=== PATIENT | female | born 1985 | race Caucasian/White ===

== ENCOUNTER 2018-10-05 11:14 | Emergency (ER) ==
[2018-10-05 11:32] VITALS: BP 116/83; TEMP 98.4; BMI 30.7
[2018-10-05] MEDS: MORPHINE 4 MG/ML SYRINGE IM STA (11:57)
[2018-10-05] MEDS: ZOFRAN 4 MG/2 ML IM STA (11:58)
[2018-10-05 12:13] LABS: URINE PREGNANCY TEST NEGATIVE (NEGATIVE)
--- NOTE | 2018-10-05 13:03 | CT ---
EXAM: CT ABDOMEN AND PELVIS HISTORY: Left-sided pain TECHNIQUE: CT abdomen and pelvis without intravenous contrast. Images were reconstructed using 3 mm section thickness. Reformations were prepared. COMPARISON: None FINDINGS: Diagnostic limitations may exist without including contrast enhanced images. Liver and spleen within normal limits. Gallbladder is absent. Pancreas, adrenal glands, kidneys and visualized ureters aissatou ear normal. Normal bowel aorta. There is no gastric distension. What may represent the appendix has no evidence of inflammation. Ge neral bowel gas pattern and appearance is within normal limits. Uterus and urinary bladder appear no rmal. There is no ascites or inflammatory infiltration of the abdominal fat. There is a metallic st ructure in the left adnexa suggesting a surgical clip. Correlate with history. Abdominal wall is intact. Bones reveal scoliosis of the spine. Lung bases are clear. No pneumoperi toneum. IMPRESSION: No acute intra-abdominal or pelvic abnormality identified.
--- NOTE | 2018-10-05 13:24 | US ---
EXAM: PELVIC ULTRASOUND COMPLETE HISTORY: Pain left side FINDINGS: Ultrasound pelvis transvaginal. Transvaginal approach imaging was performed for improved resolution and anatomic definition. The uterus measured 8.3 x 3.8 x 4.4 centimeters. Suggestion of a hypoechoic myometrial mass anterior ly, mid body to fundal level measuring 2.3 x 1.5 x 1.6 centimeters. The endometrial stripe measured 0.8 cm. There is a small amount of ascites within the pelvis which appears simple sonographically. The right ovary measured 3.9 x 1.0 of 1.4 cm and the left ovary 3.0 x 2.3 x 1.8 centimeters. Ovaries appeared have adequate blood flow and scattered follicles. IMPRESSION: 1. Possible uterine fibroid measuring up to 2.3 cm. 2. Normal endometrial thickness. 3. Grossly unremarkable ovaries. 4. Small amount of pelvic ascites, nonspecific and possibly physiologic.
--- NOTE | 2018-10-05 13:25 | ED.PDOC ---
General ED Provider: Dr. JONATHAN ELIZONDO Chief Complaint: Abdominal Pain Stated Complaint: left lower abdominal pain x 2 days Time Seen by Physician: 11:18 ( seen with rehan at all times ) Mode of Arrival: Walk-In Information Source: Patient Exam Limitations: No limitations Referred to ED by: Other (WAS IN A [facility] 3 WEEKS AGO) Nursing and Triage Documentation Reviewed and Agree: Yes Does patient meet sepsis criteria?: No System Inflammatory Response Syndrome: Not Applicable Sepsis Protocol: For patient's 13 years and over: Temp is 96.8 and below OR 101 and greater Pulse >90 BPM Resp >20/minute Acutely Altered Mental Status Are patient's symptoms suggestive of a new infection, such as: -Pneumonia -Skin, Soft Tissue -Endocarditis -UTI -Bone, Joint Infection -Implantable Device -Acute Abdominal Infection -Wound Infection -Meningitis -Blood Stream Catheter Infection -Unknown GI Complaint Exam - Abdominal Pain Complaint/Exam Onset: Gradual Duration: 2 days Symptoms Are: Still present Timing: Intermittent Initial Severity: Moderate Location of Pain: LLQ Radiates To: Reports: Flank (left) Character: Reports: Cramping Aggravating: Reports: None Alleviating: Reports: None Associated Signs and Symptoms: Reports: Back pain (left flank). Denies: Diaphoresis, Fever, Cough, Chest pain, Dizziness, Constipation, Blood in stool, Dysuria, Urinary frequency, Decreased urine output, Decreased appetite, Vaginal bleeding, Vaginal discharge, Nausea, Vomiting, Diarrhea, Sore throat, Decreased activity Related History: Reports: Similar episode AAA Risk Factors: Reports: None Cardiac Risk Factors: Reports: None Ectopic Risk Factors: Reports: None Ovarian Torsion Risk Factors: Reports: None Surgical Obstruction Risk Factors: Reports: None Related Surgical History: Reports: None Patient Rh Status: Unknown Differential Diagnoses: Appendicitis, Bowel Obstruction, Constipation, Renal Colic, Ureteral Stone, UTI, Ovarian Cyst Review of Systems - Review Of Systems Constitutional: Reports: No symptoms Eyes: Reports: No symptoms Ears, Nose, Mouth, Throat: Reports: No symptoms Respiratory: Reports: No symptoms Cardiac: Reports: No symptoms GI: Reports: Abdominal pain : Reports: No symptoms Musculoskeletal: Reports: No symptoms Skin: Reports: No symptoms Neurological: Reports: No symptoms Endocrine: Reports: No symptoms Hematologic/Lymphatic: Reports: No symptoms All Other Systems: Reviewed and Negative Past Medical History - Past Medical History Previously Healthy: Yes Endocrine: Reports: None Cardiovascular: Reports: None Respiratory: Reports: None Hematological: Reports: None Gastrointestinal: Reports: None Genitourinary: Reports: None Neuro/Psych: Reports: None Musculoskeletal: Reports: None Cancer: Reports: None Last Menstrual Period: 1.5 WEEKS AGO - Surgical History General Surgical History: Reports: None - Family History Family History: Reports: None - Social History Smoking Status: Current every day smoker Hx Substance Use: No Alcohol Screening: None Physical Exam - Physical Exam Appearance: Well-appearing, No pain distress, Well-nourished Eyes: PRINCE, EOMI, Conjunctiva clear ENT: Ears normal, Nose normal, Oropharynx normal Respiratory: Airway patent, Breath sounds clear, Breath sounds equal, Respirations nonlabored Cardiovascular: RRR, Pulses normal, No rub, No murmur GI/: Soft, Nontender, No masses, Bowel sounds normal, No Organomegaly Musculoskeletal: Normal strength, ROM intact, No edema, No calf tenderness Skin: Warm, Dry, Normal color Neurological: Sensation intact, Motor intact, Reflexes intact, Cranial nerves intact, Alert, Oriented Psychiatric: Affect appropriate, Mood appropriate Interpretation - Radiology Interpretation Radiology Interpretation By: Radiologist Radiology Results: No acute changes Exam Interpreted: CT Scan Re-Evaluation - Re-Evaluation Time of Re-Evaluation: 13:25 Status: Improved Vital Signs Stable: Yes Pain Level: 0 Appearance: NAD Lungs: Clear Skin: Warm and Dry Neuro: Alert and Oriented X3 CV: RRR Critical Care Note - Critical Care Note Total Time (mins): 0 Course - Course Hematology/Chemistry: 10/05/18 11:52 10/05/18 11:52 Orders, Labs, Meds: Lab Review 10/05/18 10/05/18 10/05/18 11:33 11:33 11:33 WBC RBC Hgb Hct MCV MCH MCHC RDW Coeff of Garret Plt Count Immature Gran % (Auto) Neut % (Auto) Lymph % (Auto) [place] % (Auto) Eos % (Auto) Baso % (Auto) Immature Gran # (Auto) Neut # (Auto) Lymph # (Auto) [place] # (Auto) Eos # (Auto) Baso # (Auto) Sodium Potassium Chloride Carbon Dioxide Anion Gap BUN Creatinine Estimated GFR (MDRD) BUN/Creatinine Ratio Glucose Calcium Total Bilirubin AST ALT Alkaline Phosphatase Total Protein Albumin Globulin Albumin/Globulin Ratio Amylase Lipase Urine Color Yellow Urine Clarity Clear Urine pH 7.0 Ur Specific Tim[place] 1.015 Urine Protein Negative Urine Glucose (UA) Negative Urine Ketones Negative Urine Blood Negative Urine Nitrite Negative Urine Bilirubin Negative Urine Urobilinogen 0.2 Ur Leukocyte Esterase Trace Ur Squamous Epith Cells Pending Urine Test Negative Urine Opiates Screen Negative Ur Oxycodone Screen Negative Urine Methadone Screen Negative Ur Propoxyphene Screen Negative Ur Barbiturates Screen Negative U Tricyclic Antidepress Negative Ur Phencyclidine Scrn Negative Ur Amphetamine Screen Negative U Methamphetamines Scrn Negative U Benzodiazepines Scrn Negative Urine Cocaine Screen Negative U Cannabinoids Screen Positive 10/05/18 10/05/18 11:52 11:52 WBC 6.41 RBC 4.05 L Hgb 12.7 Hct 39.9 MCV 98.5 MCH 31.4 H MCHC 31.8 RDW Coeff of Garret 14.0 Plt Count 149 Immature Gran % (Auto) 0.5 Neut % (Auto) 52.1 Lymph % (Auto) 34.3 [place] % (Auto) 7.2 Eos % (Auto) 5.1 Baso % (Auto) 0.8 Immature Gran # (Auto) 0.0 Neut # (Auto) 3.3 Lymph # (Auto) 2.2 [place] # (Auto) 0.5 Eos # (Auto) 0.3 Baso # (Auto) 0.1 Sodium 137.8 Potassium 4.68 Chloride 105.9 Carbon Dioxide 21.6 L Anion Gap 14.98 BUN 13.5 Creatinine 0.64 Estimated GFR (MDRD) 107.00 BUN/Creatinine Ratio 21.09 Glucose 85.8 Calcium 8.92 Total Bilirubin 0.30 AST 53.2 H ALT 91.0 H Alkaline Phosphatase 55.0 Total Protein 6.92 Albumin 4.06 Globulin 2.86 Albumin/Globulin Ratio 1.41 Amylase 109.4 Lipase 238.7 Urine Color Urine Clarity Urine pH Ur Specific [place] Urine Protein Urine Glucose (UA) Urine Ketones Urine Blood Urine Nitrite Urine Bilirubin Urine Urobilinogen Ur Leukocyte Esterase Ur Squamous Epith Cells Urine Test Urine Opiates Screen Ur Oxycodone Screen Urine Methadone Screen Ur Propoxyphene Screen Ur Barbiturates Screen U Tricyclic Antidepress Ur Phencyclidine Scrn Ur Amphetamine Screen U Methamphetamines Scrn U Benzodiazepines Scrn Urine Cocaine Screen U Cannabinoids Screen Orders Category Date Time Status AMYLASE Stat LAB 10/05/18 11:52 Completed CBC W/ AUTO DIFF Stat LAB 10/05/18 11:52 Completed COMPREHENSIVE METABOLIC PANEL Stat LAB 10/05/18 11:52 Completed DRUG SCREEN (RAPID FOR ED) [DRUG SCREEN, URINE, RAPID] LAB 10/05/18 11:33 Completed Stat LIPASE Stat LAB 10/05/18 11:52 Completed URINALYSIS C & S IF INDICATED Stat LAB 10/05/18 11:33 Results URINE Stat LAB 10/05/18 11:33 Completed Morphine Sulfate [Morphine 4 mg/ml Syringe] MEDS 10/05/18 11:40 Discontinued 4 mg IM ONCE STA Ondansetron HCl/Pf [Zofran 4 mg/2 ml] MEDS 10/05/18 11:40 Discontinued 4 mg IM ONCE STA CT ABD/PEL WO RENAL STONE PROT Stat RADS 10/05/18 11:39 Completed U/S PELVIS SINGH VAGINAL/NON OB Stat RADS 10/05/18 11:38 Ordered Medications Discontinued Medications Generic Name Dose Route Start Last Admin Trade Name Freq PRN Reason Stop Dose Admin Morphine Sulfate 4 mg 10/05/18 11:40 10/05/18 11:57 Morphine 4 Mg/Ml Syringe IM 10/05/18 11:41 4 mg ONCE STA Administration Ondansetron HCl 4 mg 10/05/18 11:40 10/05/18 11:58 Zofran 4 Mg/2 Ml IM 10/05/18 11:41 4 mg ONCE STA Administration Vital Signs: Temp Pulse Resp BP Pulse Ox 10/05/18 11:15 98.4 F 81 20 116/83 99 Departure - Departure Time of Disposition: 13:31 Disposition: HOME SELF-CARE Discharge Problem: Abdominal pain Uterine fibroid Qualifiers: Uterine leiomyoma location: unspecified location Qualified Code(s): D25.9 - Leiomyoma of uterus, unspecified Instructions: Acute Abdominal Pain (DC), Flank Pain (ED), Abdominal Pain (ED) Condition: Good Pt referred to PMD for follow-up: Yes IPMP verified?: No Additional Instructions: Please call your Family Physician as soon as possible to schedule a follow-up appointment.you seem like to have a uterine fibroids. please see your doctor or [facility] TRA[employer]PERATOR for the follow up. The fibroids can get bigger , cause pain or bleed. In some rare cases they can become cancerous Allergies/Adverse Reactions: Allergies Penicillins Adverse Reaction (Verified 10/05/18 11:21) Home Medications: Ambulatory Orders 1 [No Reported Medications] 10/05/18 Disposition Discussed With: Patient
== END 2018-10-05 13:58 | disposition home or self-care (01) ==
LOC: ED 11:14
DX: R10.32 Left lower quadrant pain (principal); D25.9 Leiomyoma of uterus, unspecified; F17.210 Nicotine dependence, cigarettes, uncomplicated
CPT/HCPCS: 36415; 80053; 80306; 81001; 81025; 82150; 83690; 85025; 96372; 99283